=== PATIENT | female | born 1955 | race Two or more races ===

== ENCOUNTER 2019-07-15 15:07 | Outpatient (CLI) | payer OTHER | END 2019-07-15 15:11 | disposition home or self-care (01) | LOC: LAB 15:07 | DX: R05 Cough (principal); Z03.818 Encounter for observation for suspected exposure to other biological agents ruled out ==

== ENCOUNTER 2023-07-04 07:51 | Emergency (ER) | payer OTHER ==
[~2023-07-04] VITALS: Ht 163.8 cm; Wt 72.6 kg
[2023-07-04] MEDS ORDERED: NORVASC5 MG PO (08:15)
[2023-07-04] MEDS ORDERED: LOTREL 5-10 MG1 CAP PO (08:15)
[2023-07-04] MEDS ORDERED: CARVEDILOL12.5 MG (08:15)
[2023-07-04] MEDS ORDERED: PREMARIN0.45 MG PO (08:15)
[2023-07-04] MEDS ORDERED: SINGULAIR4 M1 PO (08:16)
== END 2023-07-04 09:11 | disposition home or self-care (01) ==
LOC: ER 07:51
DX: S01.01XA Laceration without foreign body of scalp, initial encounter (principal); X58.XXXA Exposure to other specified factors, initial encounter; Y93.89 Activity, other specified; Y92.89 Other specified places as the place of occurrence of the external cause; Y99.8 Other external cause status; E05.80 Other thyrotoxicosis without thyrotoxic crisis or storm